=== PATIENT | male | born 1970 | race Two or more races ===

== ENCOUNTER 2019-04-19 17:33 | Emergency (ER) | payer MEDICAID ==
[~2019-04-19] VITALS: Ht 165.1 cm; Wt 81.8 kg
[2019-04-19] MEDS ORDERED: ESCI10TA PO (17:42)
[2019-04-19] MEDS ORDERED: TRAZ150 PO (17:42)
[2019-04-19 20:12] VITALS: BP 123/73
== END 2019-04-19 20:34 | disposition home or self-care (01) ==
LOC: EMS 17:36
DX: Z72.51 High risk heterosexual behavior (principal); R45.0 Nervousness; F41.9 Anxiety disorder, unspecified; K21.9 Gastro-esophageal reflux disease without esophagitis; Z79.899 Other long term (current) drug therapy